=== PATIENT | female | born 1940 | race Caucasian/White ===

== ENCOUNTER → 2017-08-30 11:12 | Outpatient (CLI) | payer MEDICARE | END | disposition home or self-care (01) | LOC: D.CT 11:12 | DX: R91.8 Other nonspecific abnormal finding of lung field (principal) ==

== ENCOUNTER → 2018-04-19 17:09 | Outpatient (CLI) | payer MEDICARE | END | disposition home or self-care (01) | LOC: D.LABREF 17:09 | DX: R31.9 Hematuria, unspecified (principal); D72.829 Elevated white blood cell count, unspecified ==

== ENCOUNTER → 2018-05-13 15:09 | Outpatient (CLI) | payer MEDICARE | END | disposition home or self-care (01) | LOC: D.CT 15:09 | DX: R31.21 Asymptomatic microscopic hematuria (principal) ==

== ENCOUNTER → 2018-05-20 18:41 | Outpatient (CLI) | payer MEDICARE | END | disposition home or self-care (01) | LOC: D.LABREF 18:41 | DX: N39.0 Urinary tract infection, site not specified (principal) ==

== ENCOUNTER 2018-06-27 06:45 | Day surgery (SDC) | payer MEDICARE ==
--- NOTE | 2018-06-26 14:42 | NUR ---
VINCENT NOTE: PATIENT REPORTS CURRENTLY TAKING ELIQUIS 5MG BID WITH LAST DONE 06/26/18 AM. JORGE LUIS AT DR. LINARES'S OFFICE NOTIFIED, STATES ELIQUIS DOES NOT NEED TO BE HELD PRIOR.
[~2018-06-27] VITALS: Ht 170.2 cm; Wt 63.5 kg
[~2018-06-27 06:45] MED LIST: ASPIRIN EC81 M1 PO; COREG12.5 MG PO; ELIQUIS5 MG PO; FUROSEMIDE20 MG PO; KLOR-CON 1010 MEQ PO; LANOXIN125 MCG PO; LISINOPRIL5 MG PO
[2018-06-27 07:12] LABS: BASOPHILS 0.4 % (0-2); EOSINOPHILS 3.7 % (0-7); HEMATOCRIT 40.6 % (36.0-48.0); HEMOGLOBIN 13.4 g/dL (12-16); IMMATURE GRANULOCYTES 0.4 % (0-5); LYMPHOCYTES 29.1 % (15-50); MCH 28.6 pg (26.0-34.0); MCV 86.6 fL (80.0-100.0); MEAN PLATELET VOLUME 10.9 fL (7.4-10.4); MONOCYTES 8.3 % (2-11); NEUTROPHILS 58.1 % (40-80); PLATELET COUNT 175 10x3/uL (130-400); RBC 4.69 10x6/uL (4.00-5.40); RDW 13.3 % (11.5-14.5); WBC 7.6 10x3/uL (4.8-10.8)
[2018-06-27 07:30] LABS: APTT 35.5 SECONDS (22.8-39.4); INR 1.08 (0.85-1.17); PROTIME 13.5 SECONDS (11.6-15.0)
[2018-06-27 08:25] VITALS: BP 152/92; Ht 170.2 cm; Wt 63.5 kg
--- NOTE | 2018-06-27 11:00 | NUR ---
REC'D FROM SURGERY. NO FAMILY AT BEDSIDE. ICE WATER AND FL TRAY TAKEN TO PT. DR LINARES IN WITH PATIENT.
--- NOTE | 2018-06-27 11:39 | NUR ---
EATING FL TRAY. NO C/O VOICED.
--- NOTE | 2018-06-27 11:39 | OP ---
PATIENT NAME: JERICA GREENE MEDICAL RECORD: [id number] :42 LOCATION:D.OPS ADMISSION DATE: SURGEON: ANTOLIN LINARES MD DATE OF OPERATION: 06/27/2018 SURGEON: Antolin Linares MD ANESTHESIA: TIVA by Louie Shearer CRNA. PREOPERATIVE DIAGNOSES: Microscopic hematuria, bladder tumor 5 mm on the right dome of the bladder. PROCEDURES: Cystoscopy, bladder tumor resection, 5 mm tumor. FINDINGS: Single ureteral orifices bilaterally. Papillary bladder tumor about 5 mm in size on the right dome of the bladder. BLOOD LOSS: Minimal. SPECIMENS: Bladder tumor. CLINICAL HISTORY: This is a 78-year-old female who is being worked up for microscopic hematuria. Urine cytology was negative for high-grade cancer cells. Urine culture showed mixed organisms. CT scan of the abdomen and pelvis shows normal kidneys with sigmoid diverticulosis and no diverticulitis. No bladder tumors were seen. She comes today to have cystoscopy as part of the hematuria workup. SHE IS ALLERGIC TO CODEINE. DESCRIPTION OF PROCEDURE: The patient was given Ancef intercell connector placer to the OR. She was given TIVA and placed in lithotomy position. A 17-Serbian cystoscope was used with a 30-degree lens. Initially all I saw was some inflammation of the bladder wall until I encountered the papillary tumor on the right dome of the bladder. There is a small extension anteriorly adjacent to it. We switched to sterile water instead of normal saline. I also used biopsy forceps and removed all of the tumor using the biopsy forceps. Once all of the tumor area had been removed, the wound edges were cauterized using a Bugbee electrode. The level of my biopsies were not deep enough to go through the bladder muscle and therefore, I think she can go without a Horton catheter. The patient was then awakened and brought back to the preoperative holding area. I will see her in followup in 2 weeks' time to review the pathology with her. TRANSINT:[id number] Voice Confirmation ID: [id number] DOCUMENT ID: [id number] ANTOLIN LINARES MD at 1139 CC: [id number] DICTATION DATE: 06/27/18 1103 CUSTOMER ADVOCATE: 06/27/[address] [facility] [address] [place] [address]
--- NOTE | 2018-06-27 12:00 | NUR ---
TOLERATED DIET. CALLED FOR PERSONAL BELONGINGS BE BROUGHT UP FROM [facility]. IV DC'D WITH CATHETER INTACT.
--- NOTE | 2018-06-27 12:20 | NUR ---
WRITTEN AND VERBAL DC INST. GIVEN TO PT. VERBALIZED UNDERSTANDING.
--- NOTE | 2018-06-27 12:28 | NUR ---
DC'D HOME WITH FAMILY VIA PRIVATE VEHICLE. TAKEN TO VEHICLE VIA WC. STABLE AT TIME OF DC.
== END 2018-06-27 12:28 | disposition home or self-care (01) ==
LOC: D.OPS 06:45
PROVIDERS: Anesthesiology; ATTEND Urology
DX: C67.1 Malignant neoplasm of dome of bladder (principal); Z88.5 Allergy status to narcotic agent; Z01.812 Encounter for preprocedural laboratory examination

== ENCOUNTER → 2018-10-08 09:49 | Outpatient (CLI) | payer MEDICARE ==
[2018-06-27 08:25] VITALS: BMI 21.9
== END | disposition home or self-care (01) ==
LOC: D.CT 09:49
PROVIDERS: ATTEND Family Medicine
DX: R10.11 Right upper quadrant pain (principal); R10.12 Left upper quadrant pain; R10.31 Right lower quadrant pain; R10.32 Left lower quadrant pain

== ENCOUNTER 2018-10-31 06:31 | Day surgery (SDC) | payer MEDICARE ==
[~2018-10-31] VITALS: Ht 170.2 cm; Wt 68.9 kg
[2018-10-31 07:10] LABS: BASOPHILS 0.4 % (0-2); EOSINOPHILS 6.6 % (0-7); HEMATOCRIT 39.3 % (36.0-48.0); HEMOGLOBIN 13.2 g/dL (12-16); IMMATURE GRANULOCYTES 0.3 % (0-5); LYMPHOCYTES 22.5 % (15-50); MCH 28.3 pg (26.0-34.0); MCHC 33.6 g/dL (31.0-37.0); MCV 84.2 fL (80.0-100.0); MEAN PLATELET VOLUME 10.8 fL (7.4-10.4); MONOCYTES 8.6 % (2-11); NEUTROPHILS 61.6 % (40-80); PLATELET COUNT 194 10x3/uL (130-400); RBC 4.67 10x6/uL (4.00-5.40); RDW 13.4 % (11.5-14.5)
[2018-10-31 07:16] LABS: APTT 36.6 SECONDS (22.8-39.4); INR 1.11 (0.85-1.17); PROTIME 13.7 SECONDS (11.6-15.0)
[2018-10-31 07:25] LABS: ANION GAP 13.2 mmol/L (8-16); CALCIUM 9.1 mg/dL (8.5-10.1); POTASSIUM - SERUM 3.2 mmol/L (3.5-5.1)
[2018-10-31 08:27] VITALS: BP 137/64; Ht 170.2 cm; Wt 68.9 kg
--- NOTE | 2018-10-31 12:10 | NUR ---
OPA IN AIRWAY ON ADMIT
--- NOTE | 2018-10-31 12:39 | NUR ---
1237-REC'D FROM RR. AWAKE AND ALERT WITHOUT COMPLAINTS. IV PATENT TO RIGHT HAND AT KVO. FULL LIQUID TRAY TO ROOM.
--- NOTE | 2018-10-31 12:49 | OP ---
PATIENT NAME: JERICA GREENE MEDICAL RECORD: [id number] :42 LOCATION:D.OPS ADMISSION DATE: SURGEON: ANTOLIN LINARES MD DATE OF OPERATION: 10/31/2018 SURGEON: Antolin Linares MD ANESTHESIA: General anesthesia by Mayra Rossi CRNA. DIAGNOSIS: History of bladder cancer. PROCEDURE: Cystoscopy. FINDINGS: Single ureteral orifices bilaterally with no bladder tumors. BLOOD LOSS: None. CLINICAL HISTORY: This is a 78-year-old female, who was found to have bladder tumors on the right dome of the bladder on 06/27/2018 when she had cystoscopy for microscopic hematuria. This was removed. 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 She comes today for surveillance cystoscopy. SHE IS ALLERGIC TO CODEINE. She was given Ancef community liaison to the OR. DESCRIPTION OF PROCEDURE: The patient was given induction of general anesthesia. She was then placed into the lithotomy position and prepped and draped. A 17-Emirati cystoscope with 30-degree lens was used for visualization. No tumors were found. The bladder was then emptied through the scope sheath and the scope was removed. The patient was awakened and brought to the recovery room. I will see her in followup in 3 months' time to arrange surveillance cystoscopy at that time. TRANSINT:[id number] Voice Confirmation ID: [id number] DOCUMENT ID: [id number] ANTOLIN LINARES MD at 1249 CC: [id number] DICTATION DATE: 10/31/18 1159 VISUAL MERCHANDISING MANAGER: 10/31/18 1217 [id number] [place] [address]
--- NOTE | 2018-10-31 13:00 | NUR ---
1300- DISCONTINUED IV FROM LEFT ARM WITH CATH INTACT. TOLERATED WELL WITHOUT COMPLAINTS. DISPOSED INTO SHARPS. COVERED WITH BANDAID.
--- NOTE | 2018-10-31 13:34 | NUR ---
1327- DISCHARGED VIA W/C TO [facility] GRAVURE PRINTING MACHINIST WITHOUT QUESTIONS OR COMPLAINTS. DISCHARGE PAPERWORK IN HAND.
== END 2018-10-31 13:27 | disposition home or self-care (01) ==
LOC: D.OPS 06:31
PROVIDERS: Anesthesiology; ATTEND Urology
DX: Z85.51 Personal history of malignant neoplasm of bladder (principal); Z88.5 Allergy status to narcotic agent; Z01.812 Encounter for preprocedural laboratory examination

== ENCOUNTER 2019-03-13 07:20 | Day surgery (SDC) | payer MEDICARE ==
[~2019-03-13] VITALS: Ht 170.2 cm; Wt 62.6 kg
[~2019-03-13 07:20] MED LIST changes: +ALENDRONAT70 MG/75 M PO; +MULTI-DAY VITAM1 TAB PO; +VITAMIN D31000 UNI2 PO
[2019-03-13 07:57] LABS: HEMOGLOBIN 13.4 g/dL (12-16); LYMPHOCYTES 30.4 % (15-50); MCH 28.6 pg (26.0-34.0); MCHC 32.7 g/dL (31.0-37.0); MCV 87.6 fL (80.0-100.0); MEAN PLATELET VOLUME 10.5 fL (7.4-10.4); NEUTROPHILS 60.3 % (40-80); RBC 4.68 10x6/uL (4.00-5.40); RDW 13.1 % (11.5-14.5); WBC 7.3 10x3/uL (4.8-10.8)
[2019-03-13 07:58] LABS: PLATELET COUNT 154 10x3/uL (130-400)
[2019-03-13 08:06] LABS: ANION GAP 7.3 mmol/L (8-16); CALCIUM 9.5 mg/dL (8.5-10.1); CARBON DIOXIDE 32.6 mmol/L (21.0-32.0); CREATININE - SERUM 0.8 mg/dL (0.6-1.3); POTASSIUM - SERUM 3.9 mmol/L (3.5-5.1)
[2019-03-13 08:13] LABS: APTT 32.7 SECONDS (22.8-39.4); INR 1.05 (0.85-1.17); PROTIME 13.2 SECONDS (11.6-15.0)
[2019-03-13 09:43] VITALS: BP 152/93; Ht 170.2 cm; Wt 62.6 kg
--- NOTE | 2019-03-13 13:59 | NUR ---
ARMS ACROSS CHEST INTRAOP, KRISTA.
--- NOTE | 2019-03-13 16:00 | NUR ---
1420-REC'D FROM SURGERY. AWAKE AND ALERT WITHOUT COMPLAINTS OF PAIN. VSS. IV PATENT TO RIGHT WRIST AT KVO. FULL LIQUID TRAY TO ROOM. CL IN EASY REACH.
--- NOTE | 2019-03-13 16:01 | NUR ---
1450-ABLE TO AMBULATE TO RESTROOM WITH SLOW STEADY GAIT AND URINATE WITHOUT COMPLICATIONS. DENIES COMPLAINTS. VSS. TOLERATED FULL LIQUID TRAY. REMOVED IV FROM RIGHT WRIST WITH CATH INTACT, DISPOSED INTO SHARPS,COVERED SITE WITH COTTON BALL,SECURED WITH TAPE.
--- NOTE | 2019-03-13 16:03 | NUR ---
1457-PT DRESSED. REVIEWED POST OPERATIVE INSTRUCTIONS AND FOLLOW UP APPOINTMENT. VERBALIZED UNDERSTANDING WITHOUT FURTHER QUESTIONS OR CONCERNS. AWAITING FOR [facility] FOR TRANSPORTATION HOME.
--- NOTE | 2019-03-13 16:05 | NUR ---
1503-ESCORTE OUT VIA W/C WITH [facility] AUDIOLOGY DOCTOR AWAITING TO DRIVE HOME.
--- NOTE | 2019-03-13 16:18 | OP ---
PATIENT NAME: JERICA GREENE MEDICAL RECORD: [id number] :42 LOCATION:D.OPS ADMISSION DATE: SURGEON: ANTOLIN LINARES MD DATE OF OPERATION: 03/13/2019 SURGEON: Antolin Linares MD ANESTHESIA: TIVA by Danielle Nolan CRNA. DIAGNOSIS: History of bladder cancer. PROCEDURE: Cystoscopy. FINDINGS: On cystoscopy, inflamed bladder with no bladder cancer seen. Single ureteral orifices bilaterally. CLINICAL HISTORY: This is a 78-year-old female who had bladder cancer in the past. She comes for surveillance cystoscopy today. She is still on Eliquis. She did not hold it prior to the procedure today. She was given her preoperative antibiotics. DESCRIPTION OF PROCEDURE: The patient was given IV sedation. She was placed in lithotomy position. Cystoscopy was performed using a 17-Burundian cystoscope. No tumors were seen. The bladder was emptied completely. I will see the patient in followup in 3 months' time to arrange a repeat followup surveillance cystoscopy. TRANSINT:[id number] Voice Confirmation ID: [id number] DOCUMENT ID: [id number] ANTOLIN LINARES MD at 1618 CC: [id number] DICTATION DATE: 03/13/19 1428 REVOLVING INVENTORY CLERK: 03/13/19 1527 [facility] 03/13/[address] [address]
== END 2019-03-13 15:03 | disposition home or self-care (01) ==
LOC: D.OPS 07:20 → D.PAN 09:00 → D.OPS 10:00 → D.PAN 10:15 → D.OPS 15:03
PROVIDERS: Anesthesiology; ATTEND Urology
DX: Z85.51 Personal history of malignant neoplasm of bladder (principal); I11.0 Hypertensive heart disease with heart failure; I50.9 Heart failure, unspecified